=== PATIENT | female | born 1965 | race Caucasian/White ===

== ENCOUNTER 2016-05-10 07:10 | Day surgery (SDC) | payer BC ==
[2016-05-09 08:11] VITALS: BMI 22.3
[~2016-05-10 07:10] MED LIST: LACTATED RINGERS 1,000 ML IV SCH
[2016-05-10 08:02] VITALS: TEMP 97.3
[2016-05-10] MEDS ORDERED: LIDOCAINE 1% 20 ML VIAL (10MG/ML) FOR IV START INTRADERMA ONE (08:08)
[2016-05-10] MEDS ORDERED: LIDOCAINE 1% INJ 10MG/ML (20 ML MDV) ONE (08:13)
[2016-05-10] MEDS ORDERED: PROPOFOL 10 MG/ML 20 ML VIAL IV ONE (08:13)
--- NOTE | 2016-05-10 08:32 | P.PCN ---
Date of Procedure: 05/10/16 Procedure(s) Performed: BRIEF HISTORY: Patient is a 50-year-old pleasant 8 female, scheduled for an elective colonoscopy as a part of surveillance of long-standing history of ulcerative colitis diagnosed at age 19. She is being maintained on Imuran 150 mg daily since 2012 and continues to remain in clinical remission since then. Her last colonoscopy was on a year ago and was noted to have multiple pseudopolyps throughout the colon but no evidence of dysplasia. Lately she has 1 or 2 bowel movements daily, no blood or mucus in the stool. She is scheduled for a surveillance colonoscopy today. PROCEDURE PERFORMED: Colonoscopy with biopsy and snare polypectomy. PREOPERATIVE DIAGNOSIS: Long-standing history of ulcerative colitis. IV sedation per Anesthesia. PROCEDURE: After informed consent was obtained, the patient, was brought into the endoscopy unit. IV conscious sedation was administered by Anesthesia under continuous monitoring. Initially the Olympus CF-160 flexible video colonoscope was then inserted in the rectum, gradually advanced into the cecum without any difficulty. Careful examination was performed as the scope was gradually being withdrawn. Ileocecal valve and the appendiceal orifice were visualized and appeared normal. Prep was excellent. Mucosa of the cecum, ascending colon, appeared normal. In the hepatic flexure there were 2 polyps measuring 1.5 cm and 2 cm both of which were removed by snare polypectomy. The transverse colon , descending colon, sigmoid colon, and rectum appeared normal. There were scattered pseudopolyps noted throughout the entire colon. There was no evidence of active colitis. Multiple random biopsies were done from different areas of the colon to rule out dysplasia. Retroflexion was performed in the rectum and no lesions were seen. The patient tolerated the procedure well. IMPRESSION: Quiescent colitis. Scattered pseudopolyps noted throughout the entire colon but 2 large ones measuring about 1.5 cm and 2 cm in the hepatic flexure status post polypectomy. RECOMMENDATIONS: Findings of this examination were discussed with the patient as well as her family. She was advised to follow with the biopsy results. If the biopsy does not show any evidence of dysplasia, she can have a repeat colonoscopy in one year.
[2016-05-10 08:55] VITALS: BP 90/66; PULSE 60; RESP 18
[2016-05-10 09:28] LABS: Basophils % (A) 0 %; CH 33.9; CHCM 33.7; Eosinophils % (A) 1 %; HCT 37.5 % (34.0-46.0); HDW 2.78; HGB 12.5 gm/dL (11.4-16.0); Luc # (Auto) 0.04; Luc % (Auto) 1; Lymphocytes # (A) 0.4 k/uL (1.0-4.8); Lymphocytes % (A) 14 %; MCH 33.6 pg (25.0-35.0); MCHC 33.3 g/dL (31.0-37.0); Macrocytosis Slight; Mean Platelet Volume 6.6; Monocytes # (A) 0.1 k/uL (0-1.0); Monocytes % (A) 5 %; Neutrophils # (A) 2.2 k/uL (1.3-7.7); Neutrophils % (A) 79 %; RBC 3.71 m/uL (3.80-5.40); RDW 15.7 % (11.5-15.5); WBC 2.8 k/uL (3.8-10.6)
[2016-05-10 09:44] LABS: ALT 39 U/L (9-52); AST 30 U/L (14-36); Alkaline Phosphatase 55 U/L (38-126); Anion Gap 11 mmol/L; Blood Urea Nitrogen 22 mg/dL (7-17); Calcium 9.6 mg/dL (8.4-10.2); Carbon Dioxide 30 mmol/L (22-30); Chloride 102 mmol/L (98-107); Glucose 101 mg/dL (74-99); Non-African American GFR(MDRD) >60 (>60 ml/min/1.73 sqM); Potassium 4.2 mmol/L (3.5-5.1); Sodium 143 mmol/L (137-145); Total Protein 7.2 g/dL (6.3-8.2)
== END 2016-05-10 09:26 | disposition home or self-care (01) ==
LOC: ORWHC2ENDO 07:10
PROVIDERS: ATTEND Internal Medicine Gastroenterology
DX: K51.80 Other ulcerative colitis without complications (principal); K52.89 Other specified noninfective gastroenteritis and colitis; K62.1 Rectal polyp; Z79.899 Other long term (current) drug therapy; F41.9 Anxiety disorder, unspecified
CPT/HCPCS: 88305; 80053; 85025; 45380; 45385; J2001; J2704; 99153

== ENCOUNTER → 2016-11-01 | Outpatient (CLI) | payer BC ==
[2016-11-01 11:04] LABS: Basophils % (A) 0 %; CH 33.4; CHCM 33.6; Eosinophils % (A) 2 %; HCT 40.4 % (34.0-46.0); HDW 2.93; HGB 13.5 gm/dL (11.4-16.0); Luc # (Auto) 0.03; Luc % (Auto) 2; Lymphocytes # (A) 0.5 k/uL (1.0-4.8); Lymphocytes % (A) 23 %; MCH 33.3 pg (25.0-35.0); MCHC 33.4 g/dL (31.0-37.0); MCV 99.8 fL (80.0-100.0); Macrocytosis Slight; Mean Platelet Volume 6.4; Monocytes # (A) 0.2 k/uL (0-1.0); Monocytes % (A) 7 %; Neutrophils # (A) 1.5 k/uL (1.3-7.7); Neutrophils % (A) 66 %; RBC 4.05 m/uL (3.80-5.40); RDW 15.5 % (11.5-15.5); WBC 2.2 k/uL (3.8-10.6); WBC (Perox) 2.38
[2016-11-01 11:07] LABS: ALT 42 U/L (9-52); AST 35 U/L (14-36); Alkaline Phosphatase 62 U/L (38-126); Anion Gap 11 mmol/L; Blood Urea Nitrogen 13 mg/dL (7-17); Calcium 9.6 mg/dL (8.4-10.2); Carbon Dioxide 28 mmol/L (22-30); Chloride 105 mmol/L (98-107); Glucose 80 mg/dL (74-99); Non-African American GFR(MDRD) >60 (>60 ml/min/1.73 sqM); Sodium 144 mmol/L (137-145); Total Bilirubin 0.7 mg/dL (0.2-1.3); Total Protein 7.7 g/dL (6.3-8.2)
== END | disposition home or self-care (01) ==
LOC: LABWHC1 10:16
PROVIDERS: ATTEND Internal Medicine Gastroenterology
DX: K51.90 Ulcerative colitis, unspecified, without complications (principal)
CPT/HCPCS: 36415; 80053; 85025

== ENCOUNTER 2018-01-23 09:17 | Day surgery (SDC) | payer BC ==
[2018-01-22 08:26] VITALS: BMI 22.3
[~2018-01-23 09:17] MED LIST changes: +LIDOCAINE 1% 20 ML VIAL (10MG/ML) FOR IV START INTRADERMA PRN
[2018-01-23 10:18] VITALS: TEMP 97
[2018-01-23 10:45] LABS: Basophils % (A) 1 %; Eosinophils # (A) 0.1 k/uL (0-0.7); Eosinophils % (A) 2 %; HCT 45.1 % (34.0-46.0); HGB 15.5 gm/dL (11.4-16.0); Lymphocytes # (A) 0.6 k/uL (1.0-4.8); Lymphocytes % (A) 25 %; MCH 33.1 pg (25.0-35.0); MCHC 34.4 g/dL (31.0-37.0); MCV 96.4 fL (80.0-100.0); Mean Platelet Volume 6.4; Monocytes # (A) 0.2 k/uL (0-1.0); Monocytes % (A) 6 %; Neutrophils # (A) 1.6 k/uL (1.3-7.7); Neutrophils % (A) 65 %; Platelet Count 238 k/uL (150-450); RBC 4.68 m/uL (3.80-5.40); RDW 14.6 % (11.5-15.5); WBC 2.5 k/uL (3.8-10.6)
[2018-01-23] MEDS ORDERED: MIDAZOLAM 2 MG/2 ML VIAL ONE (10:55)
[2018-01-23] MEDS ORDERED: PROPOFOL 10 MG/ML 20 ML VIAL IV ONE (10:55)
[2018-01-23 10:57] LABS: ALT 26 U/L (9-52); AST 45 U/L (14-36); Albumin 4.9 g/dL (3.5-5.0); Alkaline Phosphatase 68 U/L (38-126); Anion Gap 10 mmol/L; Blood Urea Nitrogen 12 mg/dL (7-17); Calcium 10.1 mg/dL (8.4-10.2); Carbon Dioxide 30 mmol/L (22-30); Chloride 102 mmol/L (98-107); Glucose 67 mg/dL (74-99); Potassium 4.1 mmol/L (3.5-5.1); Sodium 142 mmol/L (137-145); Total Bilirubin 1.3 mg/dL (0.2-1.3); Total Protein 8.5 g/dL (6.3-8.2)
--- NOTE | 2018-01-23 11:24 | P.PCN ---
Date of Procedure: 01/23/18 Procedure(s) Performed: BRIEF HISTORY: Patient is a 52-year-old pleasant, white female scheduled for an elective colonoscopy as a part of value should of long-standing history of ulcerative colitis diagnosed in 2002 at age 19. She is maintained on azathioprine 100 mg daily and remains in clinical remission. PROCEDURE PERFORMED: Colonoscopy with biopsy PREOPERATIVE DIAGNOSIS:. long-standing history of ulcerative colitis IV sedation per Anesthesia. PROCEDURE: After informed consent was obtained, the patient, was brought into the endoscopy unit. IV sedation was administered by Anesthesia under continuous monitoring. Digital rectal examination was normal. Initially the Olympus CF- 160 flexible video colonoscope was then inserted in the rectum, gradually advanced into the cecum without any difficulty. Careful examination was performed as the scope was gradually being withdrawn. Ileocecal valve and the appendiceal orifice were visualized and appeared normal. Prep was excellent. Mucosa of the cecum, ascending colon, transverse colon, descending colon, sigmoid colon, and rectum had quiscient colitis with scattered pseudopolyps and multiple random biopsies were done at every 10 cm intervals from the rectum to the cecum.. Retroflexion was performed in the rectum and no lesions were seen. The patient tolerated the procedure well. IMPRESSION: Quiescent colitis with scattered pseudopolyps, status post multiple biopsies to rule out dysplasia. RECOMMENDATIONS: Findings of this examination were discussed with the patient as well as a family. She was advised to follow with the biopsy results. She will continue with azathioprine and Lialda. If the biopsy has no evidence of dysplasia she can have a repeat colonoscopy in 2 years.
[2018-01-23 11:41] VITALS: BP 120/78; PULSE 56; RESP 18
== END 2018-01-23 11:56 | disposition home or self-care (01) ==
LOC: ORWHC2ENDO 09:17
PROVIDERS: ATTEND Internal Medicine Gastroenterology
DX: K52.89 Other specified noninfective gastroenteritis and colitis (principal); Z87.891 Personal history of nicotine dependence; N32.81 Overactive bladder; F41.9 Anxiety disorder, unspecified; Z79.899 Other long term (current) drug therapy
CPT/HCPCS: 88305; 80053; 85025; 45380; J2250; J2704

== ENCOUNTER 2018-04-15 06:32 | Day surgery (SDC) | payer BC ==
[2018-04-13 14:17] VITALS: BMI 22.3
[~2018-04-15 06:32] MED LIST changes: -LACTATED RINGERS 1,000 ML IV SCH; -LIDOCAINE 1% 20 ML VIAL (10MG/ML) FOR IV START INTRADERMA PRN; +ceFAZolin IN SWFI 2 GM/20 ML SYRINGE IVP ONE
[2018-04-15] MEDS ORDERED: DEXAMETHASONE SOD PHOSPHATE 10 MG/ML 1 ML VIAL IV ONE (06:33)
[2018-04-15] MEDS ORDERED: LIDOCAINE 1% 20 ML VIAL (10MG/ML) FOR IV START INTRADERMA PRN (06:33)
[2018-04-15] MEDS ORDERED: SCOPOLAMINE 1.5MG/72HR PATCH TRANSDERM ONE (06:33)
[2018-04-15] MEDS ORDERED: HYDROmorphone 0.5 MG/0.5 ML SYRINGE IVP PRN (06:33)
[2018-04-15] MEDS ORDERED: ONDANSETRON 4 MG/2 ML VIAL IVP ONE (06:33)
[2018-04-15] MEDS: LACTATED RINGERS 1,000 ML IV SCH ×2 (07:14→08:24)
[2018-04-15] MEDS ORDERED: fentaNYL (PF) 50 MCG/ML 2 ML AMP IVP ONE (07:58)
[2018-04-15] MEDS ORDERED: MIDAZOLAM 2 MG/2 ML VIAL IVP ONE (07:58)
[2018-04-15] MEDS ORDERED: fentaNYL (PF) 50 MCG/ML 2 ML AMP ONE (08:25)
[2018-04-15] MEDS ORDERED: PROPOFOL 10 MG/ML 20 ML VIAL IV ONE (08:25)
[2018-04-15] MEDS ORDERED: LIDOCAINE 1% INJ 10MG/ML (20 ML MDV) ONE (08:25)
[2018-04-15] MEDS ORDERED: MIDAZOLAM 2 MG/2 ML VIAL ONE (08:25)
[2018-04-15] MEDS ORDERED: ROPIVACAINE 5 MG/ML 30 ML VIAL ONE (08:25)
[2018-04-15] MEDS ORDERED: ePHEDrine SULFATE/0.9% NACL/PF 50 MG/5 ML SYRINGE IV ONE (08:25)
[2018-04-15] MEDS ORDERED: HYDROmorphone (PF) 1 MG/ML ONE (08:25)
[2018-04-15] MEDS ORDERED: LACTATED RINGERS 1,000 ML IV ONE (09:18)
--- NOTE | 2018-04-15 10:40 | P.OP ---
Date of Procedure: 04/15/18 Preoperative Diagnosis: 1. Left hallux valgus Postoperative Diagnosis: Same Procedure(s) Performed: Correction of left hallux valgus with modified Lapidus procedure Anesthesia: LENNY, regional Surgeon: Abhijit Soriano Copy Preparer #1: Hermilo Casey Estimated Blood Loss (ml): 5 IV fluids (ml): 1,000 Pathology: none sent Condition: stable Disposition: PACU Indications for Procedure: The patient is a very pleasant previously healthy 62-year-old female who is a long-standing history of problems with her left foot. She had a hypermobile hallux valgus and came to discuss treatment options. 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 She also had pain and difficulty with shoe wear. We discussed different surgical options. My recommendation was to correct her hallux valgus deformity modified Lapidus procedure. We discussed the potential risks and complications of surgery including but not limited to risk of anesthesia, superficial infection, deep infection, delayed wound healing, nonunion of the fusion site, malunion of the fusion site, intraoperative fracture, postoperative fracture, over correction of the deformity, under correction of the deformity, recurrent hallux valgus, hallux varus, chronic pain, chronic swelling, generalized to satisfaction of surgery, DVT, PE, symptomatically hardware, need for surgery, and possibly loss of life or limb. The patient understands these potential risks and provided her verbal and written consent to go forward with surgery. Description of Procedure: The patient was identified in preoperative holding and the correct left leg was marked with my initials. I reviewed the consent form with the patient all of her questions were answered. The patient was given a popliteal and saphenous nerve block by anesthesia. She was then brought back to the operating room. She was positioned on the OR table where general anesthetic and preoperative antibiotic treatment Mr. All bony prominences well-padded. A tourniquet was applied proximal aspect of the left thigh. The left leg was prepped and draped in the standard sterile fashion. Prior to starting surgery timeout was performed identifying the correct patient, operative extremity, and procedure. The patient's leg was then elevated, exsanguinated with an Esmarch bandage, and the tourniquet was inflated to 250 mmHg. I began by outlining a longitudinal incision centered over the tarsometatarsal joints just medial to the EHL tendon. Skin incision with a scalpel and dissection was carried down carefully to the subcutaneous tissue with tenotomy scissors. The EHL tendon sheath was incised and the EHL was retracted laterally. A longitudinal incision was made over the capsule the first TMT joint. A saw was used to plane the plantar flare of the first metatarsal to allow for rotation. A pin was placed over the dorsomedial aspect of the first metatarsal base. An incision was made in the first webspace. The lateral capsule of the MTP joint was sharply released as well as the sesamoid suspensory ligament. A varus force was applied to the first MTP joint. I then was able to adequately reduce the first metatarsal over the sesamoids using rotation of the joystick pin and a mild force over the distal first metatarsal. The cutting guide was placed over the first TMT joint and a stab incision was made just distal to the cutting guide over the lateral aspect of the shaft of the second metatarsal distal to the cut guide. One katie of the intermetatarsal reduction guide was placed through the stab wound over the lateral cortex of the second metatarsal. A manager metal was placed through stab incision at the lateral base the first metatarsal to act as a fulcrum. I gently reduced the first metatarsal over the sesamoids and put the plastic katie of the intermetatarsal reduction guide over the medial aspect of the first metatarsal. I gently tightened the clamp nicely reducing the intermetatarsal angle. Reduction was verified using fluoroscopy. The toe appeared straight. On fluoroscopy the sesamoids were reduced and the intermetatarsal angle was closed down. A K wire was placed through the intermetatarsal reduction guide the reduction. Position was verified with fluoroscopy. The joint seeker was then placed as far lateral in the first tarsometatarsal joint as possible. A cut guide was then placed over the keel. Its position was verified with fluoroscopy. It was pinned in place and the keel was removed. Resection level was confirmed on both the first metatarsal base and cuneiform. A saw was then used to remove the first metatarsal base and medial cuneiform. A small cut was inadvertently made in the second metatarsal base. The cut guide was removed but the pins were left in place and the first metatarsal and cuneiform. Fluoroscopy was used to better assess the inadvertently cut and the second metatarsal base. It appeared completely nondisplaced and did not violate the lateral cortex. I elected to not to place fixation as it was nondisplaced and I didn't want to strip the second metatarsal base. The compressor/distraction guide was placed over the pins and gently distracted. The cut surfaces of the bones were removed. A small curet was used to remove a small amount of her meaning cartilage over the medial aspect of the medial cuneiform. The joint was copiously irrigated. X-ray was brought in to verify that there was no bony debris in the joint that would prevent compression of the joint. The wound was copiously irrigated. A 2.0 mm drill bit was used to fenestrate the exposed bony surfaces. The compression/distraction device was then used to compress the joint. The joint finder was placed to the lateral base of the first metatarsal to act as a fulcrum. Fluoroscopic images were taken. The joint appeared adequately compressed. There was a small overhang medially but over two thirds of the joint was adequate compressed with good bony apposition. A lateral x-ray was also taken which showed no elevation of the first metatarsal. The second metatarsal bone cut appeared to be nondisplaced. I then placed a partially threaded cannulated 3.0 mm screw from the lateral base of the first metatarsal across the TMT joint. I then placed a dorsal and medial plate over the tarsometatarsal joint. Final fluoroscopic images were taken. On the AP view the sesamoids were reduced and the intermetatarsal angle was closed down. Fixation was spanning the first tarsometatarsal joint and there was compression across the joint. The second metatarsal base fracture was nondisplaced. On the lateral view the hardware was in acceptable position and there was adequate compression across the joint. Inspection of the foot the toe appeared straight. There is a small bump over the medial eminence of the first MTP joints I elected to perform permanent section. Skin incision was made with a scalpel and dissection was carried down carefully through subcu changes tissue with tenotomy scissors. The first MTP capsule was incised. A saw was used to gently contour the first metatarsal head taking care not to cut lateral to the sulcus. The wound was copiously irrigated. A small amount of the capsule was excised and then imbricated to further correct the hallux valgus deformity. At this point all wounds were copiously irrigated. Incisions were closed in layers. A sterile dressing was applied. The drapes were taken down and a bulky Tang was placed ankle in neutral. The patient was then awoken from her anesthetic, transferred to a gurney, and brought to PACU without procedure well. Plan: The patient is going to be nonweightbearing in a bulky Tang splint. I showed the patient's the inadvertently cut the second metatarsal base which is completely nondisplaced and I do not think will affect her outcome. Due to the inadvertently cut the second metatarsal base I'm going to keep her nonweightbearing. She'll follow-up in the office in 2 weeks for splint removal , wound inspection, and nonweightbearing x-rays of the left foot. She has prescriptions for pain medication, knee scooter, and a tall boot.
--- NOTE | 2018-04-15 10:43 | P.ONQ ---
Anesthesiology Proc Note - PNB - Peripheral Nerve Block Performed Left Popliteal Single Time Out Performed: Yes Procedure Start Time: 07:56 Indication: Acute Post-Operative Pain, Analgesia Specifically requested for management of pain by DrMehul: Abhijit Soriano Sedation Type: Sedate with meaningful contact maintained Preparation: Sterile Prep Position: Supine (Right lateral) Catheter: None Needle Types: Other (see comment) (Pajunk) Needle Size: 50mm (2") Needle Gauge: 21 Technique: Ultrasound Injectate: 0.5% Ropivacaine (see comment for volume) (30cc) Blood Aspirated: No Pain Paresthesia on Injection Noted: No Resistance on Injection: Normal Events: Uneventful and Well Tolerated
--- NOTE | 2018-04-15 10:48 | XR ---
EXAMINATION TYPE: XR foot complete LT, FL guidance operating room DATE OF EXAM: 04/15/2018 CLINICAL HISTORY: Left foot hallux valgus deformity. Intraoperative fluoroscopically documentation. TECHNIQUE: Fluoroscopy. COMPARISON: None. FINDINGS/IMPRESSION: Fluoroscopic guidance was provided during procedure performed by Dr. Soriano. A total of 2 minutes and 21 seconds of fluoroscopic time was utilized during the procedure and 6 spo t images was acquired during a surgical fixation malalignment for hallux valgus deformity.
[2018-04-15 11:20] VITALS: TEMP 97.9
[2018-04-15 12:45] VITALS: RESP 18
[2018-04-15 13:25] VITALS: BP 112/67; PULSE 63
== END 2018-04-15 13:26 | disposition home or self-care (01) ==
LOC: OR 06:32
PROVIDERS: ATTEND Orthopaedic Surgery
DX: M20.12 Hallux valgus (acquired), left foot (principal); F39 Unspecified mood [affective] disorder; K51.919 Ulcerative colitis, unspecified with unspecified complications; Z79.899 Other long term (current) drug therapy; Z87.891 Personal history of nicotine dependence
CPT/HCPCS: 64450; 73630; 28297; C1713; J2250; J1100; J2405; J2001; J3010; J1170; J2795; J2704; J0690

== ENCOUNTER → 2019-02-10 | Outpatient (CLI) | payer BC ==
--- NOTE | 2019-02-10 15:32 | XR ---
EXAMINATION TYPE: XR skull complete DATE OF EXAM: 02/10/2019 COMPARISON: NONE HISTORY: Visual field defect. Prior AVM resection pre-MRI study. TECHNIQUE: Frontal and lateral views of skull as well as both lateral projections. FINDINGS: Curvilinear density posteriorly could reflect dural or vascular calcifications. No metallic intracranial or intraorbital foreign body identified to prevent MRI study. IMPRESSION: As above.
--- NOTE | 2019-02-10 21:43 | MR ---
EXAMINATION TYPE: MR brain wo/w con DATE OF EXAM: 02/10/2019 COMPARISON: None HISTORY: Visual field defect CONTRAST: Performed utilizing 6 mL intravenous Gadavist gadolinium contrast. TECHNIQUE: Multiplanar, multiecho imaging on a 3.0 Silvia magnet is performed through the brain. Stud y is performed within 24 hours of arrival to the hospital. The craniovertebral junction is normal. The pituitary is normal. Diffusion-weighted imaging is performed. No abnormal hyperintensity is present to suggest an acute i ntracranial infarct or acute ischemic change. There is a focal area of hypointensity within the left subcortical white matter. This is hypointense on diffusion T2 and inversion recovery weighted sequences. Small cavernous angioma should be consider ed. There is a small rounded density within the left subcortical insular cortex. This is hyperintense on T2-weighted sequences suggesting a Virchow-Juan Francisco's space. There is hyperintensity through the left occipital lobe with some adjacent hyperintensity. This is hy pointense on diffusion compatible with an old infarct. There is a punctate hyperintensity within the subcortical right frontal lobe white matter on inversio n recovery weighted sequences. Series 501 image 17 additional punctate hyperintensities are within th e subcortical white matter of the bilateral parietal lobes and in the subcortical right frontal lobe. These findings are nonspecific but could be related to microvascular ischemic change. Following contrast, no abnormal enhancement is evident Ventricles and sulci are appropriate for the patient age. IMPRESSIONS: 1. Old left occipital lobe infarct.. Correlate with the history. Posttraumatic encephalomalacia could also be considered. 2. 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 3. Scattered subcortical white matter changes are nonspecific but can be related to microvascular isc hemic change.
== END | disposition home or self-care (01) ==
LOC: RADMRIMAIN 14:57
PROVIDERS: ATTEND Psychiatry & Neurology Neurology
DX: R90.89 Other abnormal findings on diagnostic imaging of central nervous system (principal); Z86.73 Personal history of transient ischemic attack (TIA), and cerebral infarction without residual deficits; Z13.89 Encounter for screening for other disorder; Z98.890 Other specified postprocedural states
CPT/HCPCS: 70260; 70553; A9585

== ENCOUNTER → 2019-02-27 | Outpatient (CLI) | payer BC ==
--- NOTE | 2019-02-27 14:19 | MR ---
EXAMINATION TYPE: MR cervical spine wo con DATE OF EXAM: 02/27/2019 COMPARISON: None HISTORY: Cervicalgia / Occipital neuralgia/Chronic neck pain, Pain in left arm, Headaches TECHNIQUE: Multiplanar, multisequence images of the cervical spine were acquired. Cervical vertebra have normal alignment. There is degenerative disc space narrowing throughout the ce rvical spine with spurring of the endplates and decreased signal in the disks. There is posterior sma ll disc bulges from C3 to C7 with encroachment on the spinal canal. There is spinal stenosis and spin al canal measures 5.5 mm at C4-5 and C3-4. Spinal canal is 7.5 mm at C5-6. Canal measures 6.5 mm at C 6-7. Cervical cord shows no edema. Brainstem is intact. There is no compression fracture. I see no fo sriram bone destruction. C6-7 disc herniation is more to the left side. C5-6 disc herniation also to the left side. C 4 5 disc herniation more on the left side. There is multilevel left-sided neural forami nal impingement. IMPRESSION: Multilevel spondylotic changes in posterior cervical disc herniations that are more towards the left side. Multilevel cervical bony spinal stenosis as above. There is multilevel left-sided neural forami nal stenosis due to the left-sided disc herniations and uncovertebral spurring. IMPRESSION:
== END | disposition home or self-care (01) ==
LOC: RADMRIMAIN 12:35
PROVIDERS: ATTEND Psychiatry & Neurology Neurology
DX: M48.02 Spinal stenosis, cervical region (principal); M50.221 Other cervical disc displacement at C4-C5 level; M47.812 Spondylosis without myelopathy or radiculopathy, cervical region; M46.02 Spinal enthesopathy, cervical region
CPT/HCPCS: 72141

== ENCOUNTER 2019-11-19 08:14 | Day surgery (SDC) | payer BC ==
[2019-11-17 17:54] VITALS: BMI 22.3
[~2019-11-19 08:14] MED LIST changes: +LACTATED RINGERS 1,000 ML IV SCH; -ceFAZolin IN SWFI 2 GM/20 ML SYRINGE IVP ONE
[2019-11-19] MEDS ORDERED: LIDOCAINE 1% (10MG/ML) FOR IV START INTRADERMA ONE (08:47)
[2019-11-19 08:49] VITALS: RESP 16; TEMP 98.1
[2019-11-19] MEDS ORDERED: PROPOFOL 10 MG/ML 20 ML VIAL IV ONE (09:26)
--- NOTE | 2019-11-19 09:40 | P.PCN ---
Date of Procedure: 11/19/19 Procedure(s) Performed: BRIEF HISTORY: Patient is a 54-year-old pleasant female scheduled for an elective colonoscopy as a part of surveillance of long-standing history of ulcerative colitis diagnosed at age 19. She is maintained on Imuran 100 mg daily and Lialda 4 tablets daily. Last colonoscopy in 2018 showed scattered pseudopolyps but no evidence of active colitis. She remains in clinical remission. PROCEDURE PERFORMED: Colonoscopy with random biopsy. PREOPERATIVE DIAGNOSIS: Long-standing history of ulcerative colitis. IV sedation per Anesthesia. PROCEDURE: After informed consent was obtained, the patient, was brought into the endoscopy unit. IV sedation was administered by Anesthesia under continuous monitoring. Digital rectal examination was normal. Initially the Olympus CF-160 flexible video colonoscope was then inserted in the rectum, gradually advanced into the cecum without any difficulty. Careful examination was performed as the scope was gradually being withdrawn. Ileocecal valve and the appendiceal orifice were visualized and appeared normal. Prep was excellent. Mucosa of the cecum, ascending colon, appeared normal. There is diffuse scattered pseudopolyps noted in the transverse and descending colon. The rest of the mucosa of transverse colon, descending colon, sigmoid colon, and rectum appeared normal. Random biopsies were done at every 10 cm intervals from rectum to cecum to rule out dysplasia. There was no evidence of active colitis. Retroflexion was performed in the rectum and no lesions were seen. The patient tolerated the procedure well. IMPRESSION: Quiescent colitis with scattered pseudopolyps but no evidence of active colitis. Status post multiple random biopsies RECOMMENDATIONS: Findings of this examination were discussed with the patient is well as her family. She was advised to follow with the biopsy results. If the biopsy has no dysplasia she can have a repeat colonoscopy in 2 years.
[2019-11-19 10:30] VITALS: BP 110/78; PULSE 54
== END 2019-11-19 10:26 | disposition home or self-care (01) ==
LOC: ORWHC2ENDO 08:14
PROVIDERS: ATTEND Internal Medicine Gastroenterology
DX: K51.90 Ulcerative colitis, unspecified, without complications (principal); K63.5 Polyp of colon; N32.81 Overactive bladder; F41.9 Anxiety disorder, unspecified; Z79.899 Other long term (current) drug therapy; Z87.19 Personal history of other diseases of the digestive system; Z90.710 Acquired absence of both cervix and uterus
CPT/HCPCS: 88305; 45380; J2704

== ENCOUNTER → 2020-01-04 | Outpatient (CLI) | payer BC ==
[2020-01-04 15:00] LABS: Basophils % (A) 0 %; Eosinophils % (A) 0 %; HCT 40.7 % (34.0-46.0); Lymphocytes # (A) 0.8 k/uL (1.0-4.8); Lymphocytes % (A) 18 %; MCH 30.4 pg (25.0-35.0); MCV 95.1 fL (80.0-100.0); Mean Platelet Volume 6.8; Monocytes # (A) 0.2 k/uL (0-1.0); Monocytes % (A) 5 %; Neutrophils # (A) 3.2 k/uL (1.3-7.7); Neutrophils % (A) 76 %; Platelet Count 233 k/uL (150-450); RBC 4.28 m/uL (3.80-5.40); RDW 14.8 % (11.5-15.5); WBC 4.3 k/uL (3.8-10.6)
[2020-01-05 01:52] LABS: African American GFR (CKD) 114.6 (60.0-200.0); Albumin 4.5 g/dL (3.80-4.90); Albumin/Globulin Ratio 1.96 (1.60-3.17); Anion Gap 9.6 mmol/L (4.00-12.00); BUN/Creat Ratio 15.71 Ratio (12.00-20.00); Calcium 9.5 mg/dL (8.7-10.3); Carbon Dioxide 26.4 mmol/L (21.6-31.8); Globulin 2.3 g/dL (1.6-3.3); Non-African American GFR(CKD) 98.9 (60.0-200.0); Potassium 4.1 mmol/L (3.5-5.5); Total Bilirubin 0.6 mg/dL (0.2-1.2); Total Protein 6.8 g/dL (6.2-8.2)
== END | disposition home or self-care (01) ==
LOC: LABWHC1 14:00
PROVIDERS: ATTEND Physician Assistant
DX: K51.90 Ulcerative colitis, unspecified, without complications (principal)
CPT/HCPCS: 36415; 80053; 85025

== ENCOUNTER 2021-02-23 11:38 | Day surgery (SDC) | payer BC ==
[2021-02-21 09:38] VITALS: BMI 21.4
[2021-02-23 12:03] VITALS: TEMP 97.5
[2021-02-23] MEDS ORDERED: LACTATED RINGERS 1,000 ML IV ONE (12:04)
[2021-02-23] MEDS ORDERED: PROPOFOL 10 MG/ML 20 ML VIAL IV ONE (13:12)
[2021-02-23 13:35] VITALS: RESP 16
[2021-02-23 13:47] VITALS: BP 120/86; PULSE 65
--- NOTE | 2021-02-23 13:50 | P.PCN ---
Date of Procedure: 02/23/21 Procedure(s) Performed: BRIEF HISTORY: Patient is a 55 -year-old pleasant white female scheduled for an elective colonoscopy as a part of surveillance of long-standing history of ulcerative colitis diagnosed at age 19. Her last colonoscopy was in October 2019. PROCEDURE PERFORMED: Colonoscopywith biopsy. PREOPERATIVE DIAGNOSIS: long-standing history of ulcerative colitis. IV sedation per Anesthesia. PROCEDURE: After informed consent was obtained, the patient, was brought into the endoscopy unit. IV sedation was administered by Anesthesia under continuous monitoring. Digital rectal examination was normal. Initially the Olympus CF-160 flexible video colonoscope was then inserted in the rectum, gradually advanced into the cecum without any difficulty. Careful examination was performed as the scope was gradually being withdrawn. Ileocecal valve and the appendiceal orifice were visualized and appeared normal. Prep was excellent. Mucosa of the cecum, ascending colon, transverse colon, descending colon, sigmoid colon, and rectum appeared normal.scattered pseudopolyps identified. Random biopsies weredone at every 10 cm intervals from the rectum to cecum. Retroflexion was performed in the rectum and no lesions were seen. The patient tolerated the procedure well. IMPRESSION: Normal-appearing colon from rectum to cecum with no evidence of active colitis or colorectal neoplasia. . RECOMMENDATIONS: Findings of this examination were discussed with the patient as well as a family. She was advised to follow with the biopsy results. If the biopsies biopsy does not show any evidence of dysplasia,she can have a repeat colonoscopy in 2 years.
== END 2021-02-23 14:17 | disposition home or self-care (01) ==
LOC: ORWHC2ENDO 11:38
PROVIDERS: ATTEND Internal Medicine Gastroenterology
DX: K51.40 Inflammatory polyps of colon without complications (principal); K51.90 Ulcerative colitis, unspecified, without complications; Z79.899 Other long term (current) drug therapy; Z87.891 Personal history of nicotine dependence
CPT/HCPCS: 88305; 45380; J2704

== ENCOUNTER → 2021-09-06 | Outpatient (CLI) | payer BC ==
[2021-09-06 18:08] LABS: Basophils # (A) 0.01 X 10*3/uL (0.00-0.10); Basophils % (A) 0.2 %; Eosinophils # (A) 0.01 X 10*3/uL (0.04-0.35); Eosinophils % (A) 0.2 %; HCT 39.8 % (37.2-46.3); HGB 12.8 g/dL (12.0-15.0); Immature Grans, Automated 0.2 %; Lymphocytes # (A) 0.84 X 10*3/uL (0.90-5.00); Lymphocytes % (A) 20.2 %; MCH 30.5 pg (27.0-32.0); MCHC 32.2 g/dL (32.0-37.0); Mean Platelet Volume 9.3 fL (9.5-12.2); Monocytes # (A) 0.38 X 10*3/uL (0.20-1.00); Monocytes % (A) 9.1 %; NRBC Per 100 WBC 0 /100 WBCS (0.0-0.0); Neutrophils # (A) 2.91 X 10*3/uL (1.80-7.70); Neutrophils % (A) 70.1 %; Platelet Count 273 X 10*3/uL (140-440); RBC 4.19 X 10*6/uL (4.10-5.20); WBC 4.16 X 10*3/uL (4.50-10.00)
[2021-09-06 18:16] LABS: Albumin 4.7 g/dL (3.8-4.9); Albumin/Globulin Ratio 1.74 (1.60-3.17); Anion Gap 8.9 mmol/L (10.00-18.00); BUN/Creat Ratio 14.29 Ratio (12.00-20.00); Calcium 9.5 mg/dL (8.7-10.3); Carbon Dioxide 27.1 mmol/L (20.0-27.5); Globulin 2.7 g/dL (1.6-3.3); Non-African American GFR(CKD) 97.5 (60.0-200.0); Potassium 4.2 mmol/L (3.5-5.5); Total Bilirubin 0.6 mg/dL (0.30-1.20); Total Protein 7.4 g/dL (6.2-8.2)
== END | disposition home or self-care (01) ==
LOC: LABWHC1 14:01
PROVIDERS: ATTEND Internal Medicine Gastroenterology
DX: K51.90 Ulcerative colitis, unspecified, without complications (principal)
CPT/HCPCS: 36415; 80053; 85025

== ENCOUNTER → 2022-09-04 | Outpatient (CLI) | payer BC ==
[2022-09-04 17:31] LABS: HCT 40.1 % (37.2-46.3); HGB 13.2 g/dL (12.0-15.0); MCH 32.9 pg (27.0-32.0); MCHC 32.9 g/dL (32.0-37.0); Mean Platelet Volume 10.4 fL (9.5-12.2); NRBC Per 100 WBC 0 /100 WBCS (0.0-0.0); Platelet Count 193 X 10*3/uL (140-440); RBC 4.01 X 10*6/uL (4.10-5.20); RDW 15.6 % (11.5-14.5); WBC 3.16 X 10*3/uL (4.50-10.00)
[2022-09-04 17:48] LABS: Erythrocyte Sedimentation Rate 11 mm/Hr (0-30)
[2022-09-04 18:34] LABS: Basophils # (A) 0.02 X 10*3/uL (0.00-0.10); Basophils % (A) 0.6 %; Eosinophils # (A) 0 X 10*3/uL (0.04-0.35); Eosinophils % (A) 0 %; Immature Grans, Automated 0.3 %; Lymphocytes % (A) 28.5 %; Monocytes # (A) 0.21 X 10*3/uL (0.20-1.00); Monocytes % (A) 6.6 %; Neutrophils # (A) 2.02 X 10*3/uL (1.80-7.70); RBC Morphology NORMAL
[2022-09-04 20:21] LABS: African American GFR (CKD) 105.8 (60.0-200.0); Albumin 5.2 g/dL (3.8-4.9); Albumin/Globulin Ratio 1.83 (1.60-3.17); Anion Gap 12.7 mmol/L (10.00-18.00); BUN/Creat Ratio 16.33 Ratio (12.00-20.00); C Reactive Protein 0.4 mg/dL (0.00-0.80); Calcium 9.9 mg/dL (8.7-10.3); Carbon Dioxide 25.6 mmol/L (20.0-27.5); Globulin 2.8 g/dL (1.6-3.3); Non-African American GFR(CKD) 91.3 (60.0-200.0); Potassium 4.1 mmol/L (3.5-5.5); Total Bilirubin 0.5 mg/dL (0.30-1.20)
== END | disposition home or self-care (01) ==
LOC: LABWHC1 08:36
PROVIDERS: ATTEND Nurse Practitioner Family
DX: K51.90 Ulcerative colitis, unspecified, without complications (principal)
CPT/HCPCS: 36415; 80053; 84443; 85025; 85652; 86140

== ENCOUNTER → 2023-08-20 | Outpatient (CLI) | payer BC ==
[2023-08-20 18:08] LABS: Basophils # (A) 0.02 X 10*3/uL (0.00-0.10); Basophils % (A) 0.3 %; Eosinophils # (A) 0 X 10*3/uL (0.04-0.35); Eosinophils % (A) 0 %; HCT 44.2 % (37.2-46.3); HGB 14.6 g/dL (12.0-15.0); Lymphocytes % (A) 15.8 %; MCH 31.4 pg (27.0-32.0); MCV 95.1 FL (80.0-97.0); Mean Platelet Volume 9.1 FL (9.5-12.2); Monocytes # (A) 0.48 X 10*3/uL (0.20-1.00); Monocytes % (A) 7.6 %; NRBC Per 100 WBC 0 X 10*3/uL (0.00-0.01); Neutrophils # (A) 4.82 X 10*3/uL (1.80-7.70); Platelet Count 284 X 10*3/uL (140-440); RBC 4.65 X 10*6/uL (4.10-5.20); RDW 14.9 % (11.5-14.5); WBC 6.34 X 10*3/uL (4.50-10.00)
[2023-08-20 19:12] LABS: ALT 30 U/L (8-44); AST 32 U/L (13-35); Albumin 4.9 g/dL (3.8-4.9); Albumin/Globulin Ratio 1.58 Ratio (1.60-3.17); Alkaline Phosphatase 75 U/L (41-126); BUN/Creat Ratio 21.62 Ratio (12.00-20.00); Blood Urea Nitrogen 17.3 mg/dL (9.0-27.0); Carbon Dioxide 25.2 mmol/L (21.6-31.8); Chloride 102 mmol/L (96-109); Globulin 3.1 g/dL (1.6-3.3); Glucose 93 mg/dL (70-110); Potassium 4.6 mmol/L (3.5-5.5); Sodium 140 mmol/L (135-145); Total Bilirubin 0.6 mg/dL (0.3-1.2)
== END | disposition home or self-care (01) ==
LOC: LABWHC1 12:54
PROVIDERS: ATTEND Internal Medicine Gastroenterology
DX: K51.90 Ulcerative colitis, unspecified, without complications (principal)
CPT/HCPCS: 36415; 80053; 85025

== ENCOUNTER → 2024-08-26 | Outpatient (CLI) | payer OTHER ==
[2024-08-26 20:32] LABS: Basophils # (A) 0.02 X 10*3/uL (0.00-0.10); Basophils % (A) 0.4 %; Eosinophils # (A) 0 X 10*3/uL (0.04-0.35); Eosinophils % (A) 0 %; HCT 40.6 % (37.2-46.3); HGB 13.5 g/dL (12.0-15.0); Lymphocytes # (A) 1.11 X 10*3/uL (0.90-5.00); MCH 31.8 pg (27.0-32.0); MCHC 33.3 g/dL (32.0-37.0); MCV 95.5 FL (80.0-97.0); Mean Platelet Volume 9.4 FL (9.5-12.2); Monocytes # (A) 0.42 X 10*3/uL (0.20-1.00); Monocytes % (A) 7.6 %; NRBC Per 100 WBC 0 X 10*3/uL (0.00-0.01); Neutrophils # (A) 3.99 X 10*3/uL (1.80-7.70); Neutrophils % (A) 71.6 %; Platelet Count 281 X 10*3/uL (140-440); RBC 4.25 X 10*6/uL (4.10-5.20); RDW 14.8 % (11.5-14.5); WBC 5.56 X 10*3/uL (4.50-10.00)
[2024-08-26 21:45] LABS: ALT 55 U/L (8-44); AST 37 U/L (13-35); Albumin 4.5 g/dL (3.8-4.9); Albumin/Globulin Ratio 1.88 Ratio (1.60-3.17); Alkaline Phosphatase 65 U/L (41-126); BUN/Creat Ratio 16.14 Ratio (12.00-20.00); Blood Urea Nitrogen 11.3 mg/dL (9.0-27.0); Calcium 9.9 mg/dL (8.7-10.3); Carbon Dioxide 23.9 mmol/L (21.6-31.8); Chloride 103 mmol/L (96-109); Globulin 2.4 g/dL (1.6-3.3); Glucose 93 mg/dL (70-110); Potassium 4.1 mmol/L (3.5-5.5); Sodium 141 mmol/L (135-145); Total Bilirubin 0.3 mg/dL (0.3-1.2); Total Protein 6.9 g/dL (6.2-8.2)
== END | disposition home or self-care (01) ==
LOC: LABWHC1 13:55
PROVIDERS: ATTEND Nurse Practitioner Family
DX: K51.90 Ulcerative colitis, unspecified, without complications (principal)
CPT/HCPCS: 36415; 80053; 85025

== ENCOUNTER 2024-10-20 08:25 | Day surgery (SDC) | payer OTHER ==
[2024-10-18 14:07] VITALS: BMI 23.0
[2024-10-20] MEDS: IV FLUID CONTINUATION 1,000 ML IV ONE (08:48)
[2024-10-20] MEDS: LACTATED RINGERS 1,000 ML IV SCH (08:50)
[2024-10-20 08:52] VITALS: RESP 16; TEMP 97.3
[2024-10-20] MEDS ORDERED: PROPOFOL 10 MG/ML 20 ML VIAL IV ONE (09:35)
[2024-10-20] MEDS ORDERED: LIDOCAINE 1% INJ 10MG/ML (20 ML MDV) ONE (09:35)
--- NOTE | 2024-10-20 10:00 | P.PCN ---
Date of Procedure: 10/20/24 Procedure(s) Performed: BRIEF HISTORY: Patient is a 59-year-old pleasant white female scheduled for an elective colonoscopy as a part of screening for longstanding history of ulcerative colitis diagnosed at age 19. She has been maintained on azathioprine 100 mg daily and remains in clinical remission. PROCEDURE PERFORMED: Colonoscopy with random biopsies. PREOPERATIVE DIAGNOSIS: Longstanding history of ulcerative colitis. IV sedation per Anesthesia. PROCEDURE: After informed consent was obtained, the patient, was brought into the endoscopy unit. IV sedation was administered by Anesthesia under continuous monitoring. Digital rectal examination was normal. Initially the Olympus CF-160 flexible video colonoscope was then inserted in the rectum, gradually advanced into the cecum without any difficulty. Careful examination was performed as the scope was gradually being withdrawn. Ileocecal valve and the appendiceal orifice were visualized and appeared normal. Prep was excellent. Mucosa of the cecum, ascending colon, transverse colon, descending colon, sigmoid colon, and rectum appeared normal. Biopsies were done from cecum to rectum at 10 cm intervals to rule out dysplasia. A few scattered pseudopolyps were noted in the transverse colon. Retroflexion was performed in the rectum and no lesions were seen. The patient tolerated the procedure well. IMPRESSION: Normal-appearing colon from rectum to cecum with no evidence of active colitis or colorectal neoplasia. Few scattered pseudopolyps in the transverse colon RECOMMENDATIONS: Findings of this examination were discussed with the patient as well as her family. She was advised to continue with azathioprine 100 mg daily. Follow with the biopsy results. If the biopsy does not show any evidence of dysplasia, she can have repeat colonoscopy in 2 years..
[2024-10-20 10:23] VITALS: BP 120/90; PULSE 82
== END 2024-10-20 10:38 | disposition home or self-care (01) ==
LOC: ORWHC2ENDO 08:25
PROVIDERS: ATTEND Internal Medicine Gastroenterology
DX: K51.90 Ulcerative colitis, unspecified, without complications (principal); F41.9 Anxiety disorder, unspecified; Z88.2 Allergy status to sulfonamides; Z79.899 Other long term (current) drug therapy; Z90.710 Acquired absence of both cervix and uterus
CPT/HCPCS: 88305; 45380; J2003; J2704